=== PATIENT | male | born 1980 | race Two or more races ===

== ENCOUNTER 2024-04-30 14:49 | Emergency (ER) | payer OTHER ==
[~2024-04-30] VITALS: Ht 185.4 cm; Wt 74.8 kg
[2024-04-30 16:38] LABS: HEMATOCRIT 44.4 % (39.0-48.0); HEMOGLOBIN 15.5 g/dL (13-16.00); MEAN CELL VOLUME 86.1 fL (80.0-100.00); MEAN CORPUSCULAR HGB CONC 34.9 g/dl (32.0-36.0); PLATELET COUNT 338 K/uL (150-450); RED BLOOD COUNT 5.16 M/uL (4.00-6.00); RED CELL DISTRIBUTION WIDTH 13.1 % (11.5-14.5)
[2024-04-30] MEDS ORDERED: ENOXAPARIN SODIUM 30 MG/0.3 ML SYRINGE SUBCUTANEO STA (16:55)
[2024-04-30 17:00] LABS: ALBUMIN 4.1 gm/dL (3.4-5.0); BILIRUBIN TOTAL 0.4 mg/dL (0.3-1.2); CALCIUM 9.5 mg/dL (8.5-10.1); CREATININE SERUM 1.04 mg/dL (0.70-1.30); GFR 78.32; GLOBULINA 3.7 G/DL (2.4-3.5); POTASSIUM 3.84 mEq/L (3.5-5.1); TOTAL PROTEIN 7.8 gm/dL (6.4-8.2)
[2024-04-30] MEDS ORDERED: ENOXAPARIN SODIUM 30 MG/0.3 ML SYRINGE SUBCUTANEO SCH (17:00)
[2024-04-30 17:03] LABS: D DIMER 5.44 MG/L; PARTIAL THROMBOPLASTIN TIME 28.8 SECONDS (22.0-34.0)
[2024-04-30 17:06] LABS: INR 1.05
== END 2024-04-30 18:23 | disposition home or self-care (01) ==
LOC: ER 14:50
PROVIDERS: General Practice
DX: R53.81 Other malaise (principal); I82.409 Acute embolism and thrombosis of unspecified deep veins of unspecified lower extremity; I82.90 Acute embolism and thrombosis of unspecified vein

== ENCOUNTER 2025-09-28 09:52 | Outpatient (CLI) | payer OTHER | END 2025-09-28 09:55 | disposition home or self-care (01) | LOC: SONOGRAMA 09:52 | PROVIDERS: ATTEND Pathology Anatomic Pathology & Clinical Pathology | DX: D34 Benign neoplasm of thyroid gland (principal); E07.89 Other specified disorders of thyroid; E04.1 Nontoxic single thyroid nodule ==